=== PATIENT | female | born 1990 | race Caucasian/White ===

== ENCOUNTER 2017-02-17 17:49 | Emergency (ER) ==
[2017-02-17 18:01] VITALS: BP 132/87; TEMP 99.1; BMI 43.4
[2017-02-17] MEDS ORDERED: ZOFRAN 4 MG/2 ML IVP STA (18:13)
--- NOTE | 2017-02-17 18:14 | ED.PDOC ---
General Stated Complaint: COMPLAINS OF ABDOMINAL PAIN AND DIARRHEA, FEELS LIGHTHEADED AND WEAK periumbilical pain and cramping[End]3 days 99.1 100 18 97% 132/87 5/10 Time Seen by Physician: 18:07 Mode of Arrival: Walk-In Information Source: Patient, Family Exam Limitations: No limitations Nursing and Triage Documentation Reviewed and Agree: No <ROBERT NYE JR - Last Filed: 02/17/17 18:58> <KHADRA HARRINGTON - Last Filed: 02/17/17 19:32> ED Provider: Dr. KHADRA HARRINGTON Chief Complaint: Abdominal Pain Review of Systems - Review Of Systems Constitutional: Reports: No symptoms Eyes: Reports: No symptoms Ears, Nose, Mouth, Throat: Reports: No symptoms Respiratory: Reports: No symptoms Cardiac: Reports: No symptoms GI: Reports: Abdominal pain (periumbilical infraumbilical deep tendernessLLQ), Diarrhea : Reports: Pain Musculoskeletal: Reports: No symptoms Skin: Reports: No symptoms Neurological: Reports: No symptoms Endocrine: Reports: No symptoms Hematologic/Lymphatic: Reports: No symptoms All Other Systems: Reviewed and Negative <ROBERT NYE JR - Last Filed: 02/17/17 18:58> Past Medical History - Past Medical History Previously Healthy: Yes Endocrine: Reports: None Cardiovascular: Reports: None Respiratory: Reports: None Hematological: Reports: None Gastrointestinal: Reports: None Genitourinary: Reports: None Neuro/Psych: Reports: None Musculoskeletal: Reports: None Cancer: Reports: None Last Menstrual Period: LAST WEEK - Surgical History General Surgical History: Reports: Other (wisdom teeth) - Family History Family History: Reports: Other ( with episode of loose stools resolved) - Social History Smoking Status: Never smoker Hx Substance Use: No Alcohol Screening: None <ROBERT NYE JR - Last Filed: 02/17/17 18:58> Physical Exam - Physical Exam Appearance: Well-appearing, Obese Pain Distress: Mild Eyes: NIHARIKA, EOMI, Conjunctiva clear ENT: Ears normal, Nose normal, Oropharynx normal Neck: Supple Respiratory: Airway patent, Breath sounds clear, Breath sounds equal, Respirations nonlabored Cardiovascular: RRR, Pulses normal, No rub, No murmur GI/: Soft, No masses, Bowel sounds normal, No Organomegaly, Tender Musculoskeletal: Normal strength, ROM intact, No edema, No calf tenderness Skin: Warm, Dry, Normal color Neurological: Sensation intact, Motor intact, Reflexes intact, Cranial nerves intact, Alert, Oriented Psychiatric: Affect appropriate, Mood appropriate <ROBERT NYE JR - Last Filed: 02/17/17 18:58> Interpretation - Radiology Interpretation Radiology Interpretation By: Radiologist Radiology Results: Negative Exam Interpreted: CT Scan <KHADRA HARRINGTON - Last Filed: 02/17/17 19:32> Physician Notification - Case Discussed Endorsed To/Discussed With: DR FRIAS Time of Discussion: 18:58 <POPEYEROBERT LUU JR - Last Filed: 02/17/17 18:58> Critical Care Note - Critical Care Note Total Time (mins): 0 <ROBERT YNE JR - Last Filed: 02/17/17 18:58> Course - Course Hematology/Chemistry: 02/17/17 18:18 02/17/17 18:18 <ROBERT NYE JR - Last Filed: 02/17/17 18:58> - Course Hematology/Chemistry: 02/17/17 18:18 02/17/17 18:18 <[email or web address] - Last Filed: 02/17/17 19:32> - Course Orders, Labs, Meds: Lab Review 02/17/17 02/17/17 18:15 18:18 WBC 6.82 RBC 5.39 Hgb 14.0 Hct 43.2 MCV 80.1 L MCH 26.0 L MCHC 32.4 RDW Coeff of Nya 14.6 Plt Count 348 Immature Gran % (Auto) 0.3 Neut % (Auto) 63.3 Lymph % (Auto) 21.8 [place] % (Auto) 13.3 H Eos % (Auto) 0.9 Baso % (Auto) 0.4 Immature Gran # (Auto) 0.0 Neut # 4.3 Lymph # 1.5 [place] # 0.9 Eos # 0.1 Baso # 0.0 Sodium 139 Potassium 3.6 Chloride 111 H Carbon Dioxide 20 L Anion Gap 11.6 BUN 9 Creatinine 0.84 Estimated GFR (MDRD) 82.00 BUN/Creatinine Ratio 10.71 Glucose 83 Calcium 8.8 Total Bilirubin 0.33 AST 16 ALT 15 Alkaline Phosphatase 77 Total Protein 7.2 Albumin 3.7 Globulin 3.5 Albumin/Globulin Ratio 1.06 Amylase 41 Lipase 10 Urine Color Yellow Urine Clarity Clear Urine pH 5.0 Ur Specific [place] >=1.030 Urine Protein 1+ Urine Glucose (UA) Negative Urine Ketones Negative Urine Blood Trace-lysed Urine Nitrite Negative Urine Bilirubin 1+ Urine Urobilinogen 0.2 Ur Leukocyte Esterase Negative Urine Microscopic RBC 2-5 Urine Microscopic WBC 2-5 Ur Squamous Epith Cells 2-5 Urine Test Negative H. pylori IgG Antibody Positive Orders Category Date Time Status ED IV/MEDIPORT/POWERPORT .ONCE EMERGENCY 02/17/17 18:08 Active AMYLASE Stat LAB 02/17/17 18:18 Completed CBC W/ AUTO DIFF Stat LAB 02/17/17 18:18 Completed COMPREHENSIVE METABOLIC PANEL Stat LAB 02/17/17 18:18 Completed H. PYLORI SCREEN Stat LAB 02/17/17 18:18 Completed LIPASE Stat LAB 02/17/17 18:18 Completed URINALYSIS C & S IF INDICATED Stat LAB 02/17/17 18:15 Completed URINE Stat LAB 02/17/17 18:15 Completed 0.9 % Sodium Chloride [Saline Flush] MEDS 02/17/17 18:08 Ordered 1 syr IVF PRN PRN Ondansetron HCl [Zofran Tab] MEDS 02/17/17 18:33 Discontinued 4 mg .ROUTE .STK-MED ONE Ondansetron HCl [Zofran Tab] MEDS 02/17/17 18:31 Discontinued 4 mg PO ONCE STA CT ABDOMEN/PELVIS WO CONTRAST Stat RADS 02/17/17 18:08 Completed Medications Generic Name Dose Route Start Last Admin Trade Name Freq PRN Reason Stop Dose Admin Sodium Chloride 1 syr 02/17/17 18:08 Saline Flush IVF PRN PRN To flush IV Discontinued Medications Generic Name Dose Route Start Last Admin Trade Name Freq PRN Reason Stop Dose Admin Ondansetron HCl 4 mg 02/17/17 18:31 02/17/17 18:34 Zofran Tab PO 02/17/17 18:32 4 mg ONCE STA Administration Vital Signs: Temp Pulse Resp BP Pulse Ox 02/17/17 17:50 99.1 F 100 H 18 132/87 97 Departure <ROBERT NYE JR - Last Filed: 02/17/17 18:58> - Departure Time of Disposition: 19:30 Pt referred to PMD for follow-up: Yes Disposition Discussed With: Patient, Family <KHADRA HARRINGTON - Last Filed: 02/17/17 19:32> - Departure Disposition: HOME SELF-CARE Discharge Problem: Diarrhea Qualifiers: Diarrhea type: unspecified type Qualifier Code: (R19.7) Diarrhea, unspecified Instructions: Gastroenteritis (ED) Condition: Good Additional Instructions: hydration--avoid dairy for 3 days--zofran 4mg q 4hrs prn #4---reheck in 72hrs if not better Allergies/Adverse Reactions: Allergies No Known Allergies Allergy (Verified 02/17/17 17:53) Home Medications: Ambulatory Orders 1 [No Reported Medications] 02/17/17
[2017-02-17 18:27] LABS: BASOPHILS % (AUTO) 0.4 % (0.0-3.0); EOSINOPHILS # (AUTO) 0.1 K/ul (0.0-0.7); EOSINOPHILS % (AUTO) 0.9 % (0.0-7.0); HEMATOCRIT 43.2 % (37.0-47.0); IMMATURE GRANULOCYTE % (AUTO) 0.3 % (0.0-5.0); LYMPHOCYTES # (AUTO) 1.5 K/uL (0.60-3.4); LYMPHOCYTES % (AUTO) 21.8 (10.0-50.0); MEAN CORPUSCULAR HGB CONC 32.4 (31.8-35.4); MEAN CORPUSCULAR VOLUME 80.1 fl (81.0-99.0); MONOCYTES # (AUTO) 0.9 K/uL (0.4-2.0); MONOCYTES % (AUTO) 13.3 (0-10); NEUTROPHILS # (AUTO) 4.3 K/ul (2.0-6.9); NEUTROPHILS % (AUTO) 63.3; PLATELET COUNT 348 10^3/uL (140-440); RED BLOOD COUNT 5.39 10^6/ul (4.20-5.40); WHITE BLOOD COUNT 6.82 K/ul (4.6-10.2)
[2017-02-17] MEDS ORDERED: ZOFRAN TAB PO STA (18:31)
[2017-02-17 18:32] LABS: BILIRUBIN,URINE 1+ (NEGATIVE); KETONES,URINE Negative (NEGATIVE); LEUKOCYTE ESTERASE ,URINE Negative (NEGATIVE); NITRITE,URINE Negative (NEGATIVE); PROTEIN,URINE 1+ (NEGATIVE); URINE PREGNANCY INTERNAL QC INTERNAL QC VALID; URINE, BLOOD Trace-lysed (NEGATIVE)
[2017-02-17] MEDS ORDERED: ZOFRAN TAB ONE (18:33)
[2017-02-17 18:34] LABS: ADD URINE MICROSCOPIC YES
[2017-02-17 18:35] LABS: H. PYLORI ANTIBODY POSITIVE (NEGATIVE); H.PYLORI INTERNAL QC INTERNAL QC VALID
[2017-02-17 18:43] LABS: ALBUMIN 3.7 g/dL (3.4-5.0); ALBUMIN/GLOBULIN RATIO 1.06; ANION GAP 11.6; BILIRUBIN,TOTAL 0.33 mg/dL (0.00-1.20); BUN/CREATININE RATIO 10.71; CALCIUM 8.8 mg/dL (8.2-10.2); CREATININE 0.84 mg/dL (0.60-1.30); POTASSIUM 3.6 mmol/L (3.5-5.10); TOTAL PROTEIN 7.2 g/dL (6.4-8.2)
--- NOTE | 2017-02-17 19:27 | CT ---
EXAM: CT abdomen pelvis without contrast HISTORY: Abdominal pain and weakness COMPARISON: None. TECHNIQUE: Serial axial images of the abdomen pelvis were performed from the lung bases through the inferior pelvis without contrast. These were viewed in multiple planes. FINDINGS: Images of the lower thorax show no pulmonary infiltrate. No pleural fluid is seen. Abdomen. There is no intrperitoneal free air. The liver, spleen, pancreas, adrenal glands are unremarkable. There is no renal calculus. No obstruction of either kidney or ureter is seen. There is no cholel ithiasis or biliary ductal dilatation seen. There is no ascites. There is no small bowel obstructi on or bowel wall thickening. The appendix is normal. Pelvis. Uterus midline. No free fluid. No adenopathy. No hernia. There is some diffuse subcutaneous edema seen posterior to the lower thoracic and upper to mid lum bar spine IMPRESSION: 1. No bowel or urinary obstruction. Appendix appears normal. 2. Solid organs to include liver, spleen, and pancreas show no acute findings. 3. There is no cholelithiasis or biliary ductal dilatation seen.
== END 2017-02-17 19:36 | disposition home or self-care (01) ==
LOC: ED 17:49
DX: K52.9 Noninfective gastroenteritis and colitis, unspecified (principal)
CPT/HCPCS: 36415; 80053; 81001; 81025; 82150; 83690; 85025; 86677; 99283